=== PATIENT | male | born 1995 | race Caucasian/White ===

== ENCOUNTER 2018-11-01 09:00 | Emergency (ER) | payer BC ==
[~2018-11-01] VITALS: Ht 177.8 cm; Wt 104.3 kg
== END 2018-11-01 09:57 | disposition home or self-care (01) ==
LOC: ED 09:00
DX: S93.401A Sprain of unspecified ligament of right ankle, initial encounter (principal); W17.89XA Other fall from one level to another, initial encounter
CPT/HCPCS: 73610; 99283-25